=== PATIENT | male | born 2000 | race Caucasian/White ===

== ENCOUNTER 2024-01-23 05:36 | Emergency (ER) | payer BC ==
[~2024-01-23] VITALS: Ht 172.7 cm; Wt 88.6 kg
[2024-01-23 06:04] VITALS: TEMP 98
[2024-01-23] MEDS ORDERED: AMOXICILLIN 8751 TAB PO (06:28)
[2024-01-23 06:38] VITALS: BP 131/80; PULSE 57
== END 2024-01-23 06:38 | disposition home or self-care (01) ==
LOC: COL.ER 05:36
DX: J02.0 Streptococcal pharyngitis (principal)